=== PATIENT | male | born 2000 | race Caucasian/White ===

== ENCOUNTER 2021-04-08 04:09 | Emergency (ER) | payer SELFPAY | END 2021-04-08 04:45 | LOC: ERS 04:09 | DX: S93.402A Sprain of unspecified ligament of left ankle, initial encounter (principal); X50.1XXA Overexertion from prolonged static or awkward postures, initial encounter ==

== ENCOUNTER 2023-11-09 13:23 | Outpatient (CLI) | payer OTHER ==
[2023-11-09 14:57] LABS: #Basophils 0.09 10x3/uL (0.0-0.2); #Eosinphils 0.28 10x3/uL (0.0-0.5); #Monocytes 0.47 10x3/uL (0.0-1.1); #Neutrophils 4.28 10x3/uL (1.5-8.4); %Basophils 1.3 % (0.0-2.0); %Eosinophils 3.9 % (0.0-6.0); %Lymphocytes 27.8 % (18.0-47.0); %Monocytes 6.6 % (0.0-10.0); %Neutrophils 60.3 % (40.0-75.0); Hematocrit 49.6 % (38.8-50.0); Hemoglobin 17.6 g/dL (13.5-17.5); Mean Corpuscular HGB CONC 35.5 g/dL (32.0-36.0); Mean Corpuscular Hemoglobin 32.2 pg (27.0-33.0); Mean Corpuscular Volume 90.7 fl (81.2-95.1); Mean Platelet Volume 9.1 fl (7.4-10.4); Platelet Count 244 10x3/uL (150-450); RBC Distribution Width 12.2 % (11.5-14.5); Red Blood Cell (RBC) Count 5.47 10x6/uL (4.32-5.72); White Blood Cell (WBC) Count 7.1 10x3/uL (3.5-10.5)
[2023-11-09 15:12] LABS: Anion Gap 14 mmol/L (10-20); BUN (Urea Nitrogen) 19 mg/dL (8.9-20.6); Calc. Creatinine Clearance 0 mL/min (70-130); Calcium 9.6 mg/dL (7.8-10.44); Carbon Dioxide 22 mmol/L (22-29); Chloride 106 mmol/L (98-107); Estimated GFR 98; Glucose 99 mg/dL (70-105); Potassium 4.2 mmol/L (3.5-5.1); Sodium 138 mmol/L (136-145)
== END 2023-11-09 13:24 | disposition home or self-care (01) ==
LOC: LABBT 13:23
PROVIDERS: ATTEND Surgery
DX: Z01.812 Encounter for preprocedural laboratory examination (principal); K43.9 Ventral hernia without obstruction or gangrene
CPT/HCPCS: 80048; 85025

== ENCOUNTER 2023-11-14 07:36 | Day surgery (SDC) | payer OTHER ==
[2023-11-09 13:50] VITALS: BMI 34.9
[2023-11-14] MEDS ORDERED: EPINEPHrine 1 MG/ML VIAL ONE (10:01)
[2023-11-14] MEDS ORDERED: Bupivacaine 0.25% HCL 30 ML VIAL ONE (10:01)
[2023-11-14] MEDS ORDERED: fentaNYL PF 100 MCG/2 ML SYRINGE ONE (10:31)
[2023-11-14] MEDS ORDERED: Lidocaine 2% PF 5 ML VIAL ONE (10:31)
[2023-11-14] MEDS ORDERED: Dexamethasone 20 MG/5 ML VIAL ONE (10:31)
[2023-11-14] MEDS ORDERED: Rocuronium Bromide 10 MG/ML (10ML VIAL) ONE (10:31)
[2023-11-14] MEDS ORDERED: PROPOFOL 20 ML ONE ×2 (10:31→10:54)
[2023-11-14] MEDS ORDERED: Ondansetron PF 4 MG/2 ML Vial ONE (10:31)
[2023-11-14] MEDS ORDERED: SUGAMMADEX SODIUM 200 MG/2 ML VIAL ONE ×2 (10:31→11:22)
[2023-11-14] MEDS ORDERED: HYDROmorphone 0.5 MG/0.5 ML SYRINGE ONE (10:34)
[2023-11-14] MEDS ORDERED: CEFAZOLIN 2 GM VIAL ONE (10:35)
[2023-11-14] MEDS ORDERED: Sodium Chloride 0.9% 100 ML ONE (10:35)
[2023-11-14] MEDS ORDERED: Midazolam HCl 2 mg/2 ml Vial ONE (10:48)
[2023-11-14] MEDS ORDERED: Ketorolac Tromethamine 30 MG (1 mL) VIAL ONE (11:14)
[2023-11-14] MEDS ORDERED: fentaNYL 50 mcg/mL 1 mL Vial ONE ×6 (11:40→13:34)
[2023-11-14] MEDS ORDERED: Albuterol HFA (OR) 200 PUFF INH ONE (11:48)
[2023-11-14] MEDS ORDERED: Promethazine HCl 25 MG/ML VIAL ONE (13:07)
[2023-11-14] MEDS ORDERED: HYDROcodone/Acetaminophen 5/325 mg Tablet ONE (14:09)
== END 2023-11-14 15:00 | disposition home or self-care (01) ==
LOC: SDC 07:36
PROVIDERS: ATTEND Surgery
PROC: 0WQF4ZZ Repair Abdominal Wall, Percutaneous Endoscopic Approach (ICD-10-PCS; principal; 2023-11-14)
DX: K43.9 Ventral hernia without obstruction or gangrene (principal); F17.200 Nicotine dependence, unspecified, uncomplicated; Z98.890 Other specified postprocedural states
CPT/HCPCS: A4314; C1781; J0171; J0665; J1100; J1170; J1885; J2001; J2250; J2405; J2550; J2704; J3010; J3490